=== PATIENT | male | born 1990 | race Caucasian/White ===

== ENCOUNTER 2017-11-03 17:11 | Emergency (ER) | payer OTHER ==
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
[2017-11-03] MEDS ORDERED: NS(*) 0.9% 1000 ML BAG 1,000 ML IV ONE (17:16)
[2017-11-03] MEDS ORDERED: MORPHINE 2 MG/ML SYR IVP ONE (17:20)
[2017-11-03] MEDS ORDERED: ONDANSETRON 4 MG/2 ML VIAL IVP ONE (17:20)
[2017-11-03] MEDS ORDERED: DIPHTH/TETANUS/ACEL. PERTUSSIS IM ONE (17:20)
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
[2017-11-03 17:55] LABS: PLATELET COUNT, AUTOMATED 308 K/uL (150-450)
[2017-11-03 19:49] VITALS: BP 143/90
== END 2017-11-03 20:20 | disposition short-term general hospital (02) ==
LOC: ER 17:24
DX: T23.001A Burn of unspecified degree of right hand, unspecified site, initial encounter (principal); W86.8XXA Exposure to other electric current, initial encounter
CPT/HCPCS: 81001; 82550; 83874; 84484; 85025; 93005; 96361; 96374; 96375; 99285; J2270; J2405; J7030; 82040; 82247; 82310; 82374; 82435; 82565; 82947; 84075; 84132; 84155; 84295; 84450; 84460; 84520